=== PATIENT | male | born 1945 | race Caucasian/White ===

== ENCOUNTER 2016-06-22 12:25 | Emergency (ER) | payer MEDICARE, BC ==
[2016-01-29 08:03] VITALS: BMI 22.5
[~2016-06-22 12:25] MED LIST: AMBIEN5 MG PO; ATIVAN1 MG PO; BAYER ASPIRIN325 MG PO; EFFEXOR XR150 MG PO; FLOVENT HFA 410.6 GM INH; GLUCOSAMINE & C1 CAP PO; HYDROCODON-ACE1 EAC7 PO; HYDROCODONE-ACE15 ML PO; KENALOG 0.1% OI80 GM TOPICAL; MECLIZINE HCL25 MG PO; MELATONIN 3 MG1 TAB PO; MULTIPLE VITAMI1 TA1 PO; REMERON15 MG PO; SUMATRIPTAN SUC25 MG PO; VISTARIL25 MG PO; ZOCOR40 MG PO
== END 2016-06-22 15:06 | disposition home or self-care (01) ==
LOC: D.ER 12:25
DX: S61.411A Laceration without foreign body of right hand, initial encounter (principal); W29.8XXA Contact with other powered hand tools and household machinery, initial encounter; Y93.89 Activity, other specified; Y92.89 Other specified places as the place of occurrence of the external cause; F32.9 Major depressive disorder, single episode, unspecified; E78.5 Hyperlipidemia, unspecified; G47.00 Insomnia, unspecified